=== PATIENT | male | born 1975 | race African-American/Black ===

== ENCOUNTER 2017-12-03 19:08 | Emergency (ER) | payer OTHER | END 2017-12-03 20:07 | disposition home or self-care (01) | LOC: E/R 19:08 | DX: S16.1XXA Strain of muscle, fascia and tendon at neck level, initial encounter (principal); S39.012A Strain of muscle, fascia and tendon of lower back, initial encounter; V49.40XA Driver injured in collision with unspecified motor vehicles in traffic accident, initial encounter | CPT/HCPCS: 99283 ==

== ENCOUNTER 2018-03-02 20:22 | Emergency (ER) | payer OTHER ==
[2018-03-02] MEDS: IBUPROFEN 600 MG TAB PO (21:27)
[2018-03-02] MEDS: HYDROCODONE/APAP (5/325) TAB PO (21:28)
== END 2018-03-02 21:40 | disposition home or self-care (01) ==
LOC: FTE 20:22
DX: M54.2 Cervicalgia (principal)
CPT/HCPCS: 99283